=== PATIENT | male | born 1970 | race Hispanic/Latino ===

== ENCOUNTER 2023-02-13 01:40 | Emergency (ER) | payer OTHER ==
[~2023-02-13] VITALS: Ht 175.3 cm; Wt 92.5 kg
[2023-02-13 04:21] LABS: BASOPHILS % (AUTO) 0.4 % (0.0-5.0); HEMATOCRIT 47.4 % (42-54); MEAN CORPUSCULAR HGB CONC 32.5 g/dL (32.0-36.0); MONOCYTES % (AUTO) 3.2 % (3.0-13.0); PLATELET COUNT (AUTO) 261 K/uL (130-400); RED BLOOD CELL COUNT(AUTO) 5.71 MIL/uL (4.50-6.20); RED CELL DISTRIBUTION WIDTH 14.5 % (11.0-15.5); WHITE BLOOD COUNT (AUTO) 13.6 K/uL (4.8-10.8)
[2023-02-13 04:48] LABS: ALBUMIN 4.2 g/dL (3.5-5.0)
[2023-02-13] MEDS ORDERED: ONDANSETRON 4MG INJ ONE (06:02)
[2023-02-13] MEDS ORDERED: SOLU-MEDROL 125MG VIAL IVP ONE (06:30)
[2023-02-13] MEDS ORDERED: METH4TAB3 PO (06:34)
[2023-02-13] MEDS ORDERED: FAMO-136 PO (06:34)
[2023-02-13 06:35] VITALS: BP 136/78
[2023-02-13 06:47] LABS: APPEARANCE,URINE CLEAR (CLEAR); BILIRUBIN,URINE NEGATIVE (NEGATIVE); COLOR,URINE LIGHT-YELLOW (YELLOW); GLUCOSE, URINE (UA) NEGATIVE (NEGATIVE); KETONES,URINE NEGATIVE (NEGATIVE); LEUKOCYTE ESTERASE ,URINE NEGATIVE Leu/uL (NEGATIVE); NITRATE,URINE NEGATIVE (NEGATIVE); PROTEIN,URINE NEGATIVE (NEGATIVE); UROBILINOGEN,URINE 0.2 mg/dL (0.2-1.0)
[2023-02-13 06:57] LABS: BACTERIA,URINE FEW /HPF (None Seen); MUCUS,URINE RARE LPF (None Seen); RBC,URINE 0-1 /HPF (0-1)
== END 2023-02-13 06:47 | disposition home or self-care (01) ==
LOC: EDH 01:40
DX: M94.0 Chondrocostal junction syndrome [Tietze] (principal); K21.9 Gastro-esophageal reflux disease without esophagitis
CPT/HCPCS: 99283; 96374; 80053; 83690; 85025; 81001; 36415; J2930; J2405